=== PATIENT | female | born 1970 | race Caucasian/White ===

== ENCOUNTER 2016-07-03 19:34 | Emergency (ER) | payer MEDICARE, OTHER ==
[2016-07-03 19:39] VITALS: BP 137/57; PULSE 78; RESP 16; TEMP 97.6; O2SAT 100
--- NOTE | 2016-07-03 20:15 | PD ---
HPI Chief Complaint: Respiratory Symptoms Time Seen by Provider: 20:15 Travel History International Travel<30 days: No Contact w/Intl Traveler<30days: No Traveled to known affect area: No History of Present Illness HPI 46 year-old female with history of chronic pain, fibromyalgia, Lyme disease, who states she is resistant to most antibiotics, presents to emergency department for evaluation of multiple complaints. Patient states that she has been having pain with inspiration, shortness of breath, any night sweat for multiple weeks. She is followed by GI for hepatitis C and states that they took a lot of lab work earlier this week and contacted her yesterday telling her that she tested positive for tuberculosis. She states that they advised they would follow-up with infectious disease. Patient did not agree with that and today she had a sharp stabbing "ice pick pain" in her right hip. She is concerned that the infection has gone to her joints. She states a couple weeks ago she had a fever and chills and productive cough. She denies any hemoptysis. No nausea or vomiting. She has no other symptoms to report. PFSH Past Medical History Fibromyalgia: Yes Respiratory: Yes (TB) Social History Alcohol Use: No Tobacco Use: No Substance Use: No Allergies-Medications (Allergen,Severity, Reaction): Coded Allergies: No Known Allergies (Unverified , 07/03/16) Reported Meds & Prescriptions Reported Meds & Active Scripts Active Reported Nystatin Liq 100,000 unit/ml Susp 5 Ml SWISH-SWAL QID Acyclovir 400 Mg Tab 400 Mg PO BID Valium (Diazepam) 10 Mg Tab 10 Mg PO DIRECTED PRN Alprazolam 1 Mg Tab 1 Mg PO Q6H PRN Hydromorphone (Hydromorphone HCl) 4 Mg Tab 4 Mg PO Q4H PRN Methadone (Methadone HCl) 40 Mg Tab 80 Mg PO DAILY Physical Exam Narrative GENERAL: Well-nourished female patient, sitting up in bed, in no acute distress SKIN: Warm and dry. HEAD: Atraumatic. Normocephalic. EYES: Pupils equal and round. No scleral icterus. No injection or drainage. ENT: No nasal bleeding or discharge. Mucous membranes pink and moist. NECK: Trachea midline. No JVD. CARDIOVASCULAR: Regular rate and rhythm. No murmur appreciated. RESPIRATORY: No accessory muscle use. Diminished, likely due to poor inspiratory effort. Breath sounds equal bilaterally. GASTROINTESTINAL: Abdomen soft, non-tender, nondistended. Hepatic and splenic margins not palpable. MUSCULOSKELETAL: No obvious deformities. No clubbing. No cyanosis. No edema. NEUROLOGICAL: Awake and alert. No obvious cranial nerve deficits. Motor grossly within normal limits. Normal speech. Data Data Last Documented VS Vital Signs Date Time Temp Pulse Resp B/P Pulse Ox O2 Delivery O2 Flow Rate FiO2 07/03/16 21:12 18 07/03/16 20:56 99 Room Air 07/03/16 20:56 64 133/80 07/03/16 19:39 97.6 Orders Chest, Single Ap (07/03/16 20:17) Sodium Chloride 0.9% Flush (Ns Flush) (07/03/16 20:30) Urinalysis - C+S If Indicated (07/03/16 21:08) Labs Laboratory Tests Test 07/03/16 21:30 Urine Color LIGHT-YELLOW Urine Turbidity CLEAR Urine pH 6.5 Urine Specific [place] 1.005 Urine Protein NEG mg/dL Urine Glucose (UA) NEG mg/dL Urine Ketones NEG mg/dL Urine Occult Blood MOD Urine Nitrite NEG Urine Bilirubin NEG Urine Urobilinogen LESS THAN 2.0 MG/DL Urine Leukocyte Esterase NEG Urine RBC 25 /hpf Urine WBC 1 /hpf Urine Squamous Epithelial <1 /hpf Cells Urine Bacteria RARE /hpf Urine Mucus FEW /lpf Microscopic Urinalysis Comment CULT NOT INDICATED MDM Medical Decision Making Medical Screen Exam Complete: Yes Emergency Medical Condition: Yes Medical Record Reviewed: Yes Differential Diagnosis TB versus bronchitis versus URI versus anxiety versus pneumonia Narrative Course 46 year-old female presents to emergency department for evaluation. Patient appears without distress. Utilizing Perc criteria, patient is at low risk for PE. Last Impressions Chest X-Ray 07/03/162016 Signed Impressions: Service Date/Time: Sunday, July 03, 2016 20:27 - CONCLUSION: 1. Minimal density right cardiophrenic angle likely prominent fat-pad. 2. Otherwise unremarkable chest. Neftali Hayes MD I have discussed the pt with my attending physician Dr. Dowling who recommends patient discharged to follow-up with primary care provider is listed her symptoms have been chronic and her chest x-ray is negative. I discussed this with the patient who presents very irritated and requests to speak with a physician. Dr. Evens spoke with her. Patient mentions to her that she has been having hematuria. UA is ordered. This results in moderate local blood, 25 RBC, rare bacteria, few mucus. Culture is not indicated. Patient is discharged home to follow-up with her primary care provider. She is advised to return with any acutely worsening symptoms. Diagnosis Primary Impression: Hematuria Additional Impressions: Generalized pain H/O shortness of breath Referrals: Primary Care Physician Patient Instructions: General Instructions, Hematuria (ED) Additional Instructions: Follow up with a primary care provider Seek urology evaluation if blood persists in your urine Return to ED with acute worsening of symptoms Disposition: 01 DISCHARGE HOME Condition: Stable Kerri Cano Jul 03, 2016 20:15 Kerri Cano Jul 03, 2016 20:15
[2016-07-03] MEDS ORDERED: SODIUM CHLORIDE 0.9% FLUSH 5 ML FLUSH IVF PRN (20:30)
--- NOTE | 2016-07-03 20:46 | RADRPT ---
EXAM DATE/TIME: 07/03/2016 20:27 [facility] COMPARISON: No previous studies available for comparison. INDICATIONS : Shortness of breath MEDICAL HISTORY : Tuberculosis SURGICAL HISTORY : None. ENCOUNTER: Initial ACUITY: 1 day PAIN SCORE: 8/10 LOCATION: Bilateral chest FINDINGS: A single view of the chest demonstrates minimal density right cardiophrenic angle, lungs are otherwis e clear. Heart normal in size. The cardiomediastinal contours are unremarkable. Osseous structures are intact. CONCLUSION: 1. Minimal density right cardiophrenic angle likely prominent fat-pad. 2. Otherwise unremarkable chest. Neftali Hayes MD on July 03, 2016 at 20:44 Board Certified Radiologist. This report was verified electronically.
[2016-07-03 20:56] VITALS: BP 133/80; PULSE 64; RESP 18; O2SAT 100; O2SAT 99
[2016-07-03] MEDS ORDERED: METH40TA PO (21:11)
[2016-07-03] MEDS ORDERED: NYST1000 SWISH-SWAL (21:11)
[2016-07-03] MEDS ORDERED: HYDR4TAB PO (21:11)
[2016-07-03] MEDS ORDERED: DIAZ10 PO (21:11)
[2016-07-03] MEDS ORDERED: ALPR1TAB3 PO (21:11)
[2016-07-03] MEDS ORDERED: ACYC400T PO (21:11)
[2016-07-03 21:52] LABS: BACTERIA, URINE RARE /hpf; BLOOD, URINE MOD (NEG); COMMENT (UR) CULT NOT INDICATED; CULTURE IF INDICATED CULT NOT INDICATED; GLUCOSE,URINE NEG (NEG); KETONE, URINE NEG (NEG); MUCUS URINE FEW /lpf (OCC); NITRITE,URINE NEG (NEG); PH, URINE 6.5 (5.0-8.5); SQUAMOUS EPITHELIAL CELL URINE <1 /hpf (0-5); URINE COLOR LIGHT-YELLOW (YELLW/STRAW)
== END 2016-07-03 23:00 | disposition home or self-care (01) ==
LOC: NEPE 19:34
DX: R31.9 Hematuria, unspecified (principal); R06.02 Shortness of breath; R52 Pain, unspecified; B19.20 Unspecified viral hepatitis C without hepatic coma; M79.7 Fibromyalgia; A15.9 Respiratory tuberculosis unspecified
CPT/HCPCS: 71010; 81001; 99283